=== PATIENT | male | born 1960 | race Caucasian/White ===

== ENCOUNTER 2021-03-06 10:15 | Inpatient (IN) | payer OTHER, SELFPAY ==
[~2021-03-06] VITALS: Ht 188 cm; Wt 119.0 kg
[2021-03-06 10:19] VITALS: BP_SYST 145
[2021-03-06 11:23] LABS: BASOPHILS % (AUTO) 0.4 % (0.0-2.0); EOSINOPHILS # (AUTO) 0.2 K/uL (0.0-0.4); EOSINOPHILS % (AUTO) 6.8 % (0.0-4.0); HEMOGLOBIN 7.2 g/dL (14.0-18.0); LYMPHOCYTES # (AUTO) 0.6 K/uL (1.0-5.5); LYMPHOCYTES % (AUTO) 18.5 % (20.5-51.5); MEAN CORPUSCULAR HEMOGLOBIN 29 pg (27-31); MEAN CORPUSCULAR HGB CONC 33 % (32-36); MEAN CORPUSCULAR VOLUME 87 fL (79.0-98.0); MONOCYTES # (AUTO) 0.3 K/uL (0.0-1.0); MONOCYTES % (AUTO) 10.3 % (1.7-9.3); NEUTROPHILS # (AUTO) 2.1 K/uL (1.8-7.7); PLATELET COUNT (AUTO) 270 K/uL (130-430); RED BLOOD CELL COUNT(AUTO) 2.51 MIL/uL (4.2-6.2); RED CELL DISTRIBUTION WIDTH 16.3 % (9.0-15.0); WHITE BLOOD COUNT (AUTO) 3.2 K/uL (4.8-10.8)
[2021-03-06 11:26] LABS: HEMATOCRIT 21.9 % (36-54)
[2021-03-06 11:38] LABS: CALCIUM 8.3 mg/dL (8.4-11.0); CREATININE 0.92 mg/dL (0.55-1.30)
[2021-03-06 11:42] LABS: POTASSIUM 4.1 mmol/L (3.5-5.1)
[2021-03-06 11:44] LABS: ALBUMIN 3.1 g/dL (3.4-4.8); TOTAL BILIRUBIN 0.3 mg/dL (0.0-1.0)
[2021-03-06] MEDS: D5/0.45 NS 1,000 ML IV SCH (14:24)
[2021-03-06] MEDS ORDERED: subutex PO (18:10)
[2021-03-06] MEDS ORDERED: ONDANSETRON HCL 4 MG/2 ML VIAL IVP PRN (18:15)
[2021-03-06] MEDS ORDERED: LORazepam 2 MG/ML VIAL IVP PRN (18:15)
[2021-03-06] MEDS: PANTOPRAZOLE SODIUM 40 MG/VIAL (PROTONIX) IV SCH (20:59)
[2021-03-06] MEDS ORDERED: ACETAMINOPHEN 325 MG TABLET PO PRN (23:45)
[2021-03-07] VITALS: BP_SYST 140
[2021-03-07] MEDS: D5/0.45 NS 1,000 ML IV SCH ×3 (00:19→20:39)
[2021-03-07 06:45] LABS: BASOPHILS % (AUTO) 0.7 % (0.0-2.0); EOSINOPHILS # (AUTO) 0.2 K/uL (0.0-0.4); HEMATOCRIT 25.6 % (36-54); HEMOGLOBIN 8.5 g/dL (14.0-18.0); LYMPHOCYTES # (AUTO) 0.8 K/uL (1.0-5.5); LYMPHOCYTES % (AUTO) 22.3 % (20.5-51.5); MEAN CORPUSCULAR HEMOGLOBIN 29 pg (27-31); MEAN CORPUSCULAR HGB CONC 33 % (32-36); MEAN CORPUSCULAR VOLUME 86 fL (79.0-98.0); MONOCYTES # (AUTO) 0.4 K/uL (0.0-1.0); MONOCYTES % (AUTO) 10.2 % (1.7-9.3); NEUTROPHILS # (AUTO) 2.3 K/uL (1.8-7.7); NEUTROPHILS % (AUTO) 60.8 % (40.0-70.0); PLATELET COUNT (AUTO) 201 K/uL (130-430); RED BLOOD CELL COUNT(AUTO) 2.97 MIL/uL (4.2-6.2); RED CELL DISTRIBUTION WIDTH 15.7 % (9.0-15.0); WHITE BLOOD COUNT (AUTO) 3.7 K/uL (4.8-10.8)
[2021-03-07 07:03] LABS: CALCIUM 8.4 mg/dL (8.4-11.0); CREATININE 0.66 mg/dL (0.55-1.30); POTASSIUM 3.9 mmol/L (3.5-5.1)
[2021-03-07 08:04] VITALS: BP_SYST 116
[2021-03-07] MEDS: PANTOPRAZOLE SODIUM 40 MG/VIAL (PROTONIX) IV SCH ×2 (08:08→20:47)
[2021-03-07] MEDS ORDERED: PANT40TA45 PO (10:28)
[2021-03-07 12:00] VITALS: BP_SYST 118
[2021-03-07 16:00] VITALS: BP_SYST 110
[2021-03-07 20:00] VITALS: BP_SYST 120
[2021-03-08] VITALS: BP_SYST 139
[2021-03-08] MEDS: D5/0.45 NS 1,000 ML IV SCH (06:07)
[2021-03-08 07:53] LABS: BASOPHILS % (AUTO) 0.7 % (0.0-2.0); EOSINOPHILS # (AUTO) 0.2 K/uL (0.0-0.4); EOSINOPHILS % (AUTO) 5.7 % (0.0-4.0); HEMATOCRIT 26.2 % (36-54); HEMOGLOBIN 8.4 g/dL (14.0-18.0); LYMPHOCYTES # (AUTO) 0.6 K/uL (1.0-5.5); LYMPHOCYTES % (AUTO) 19.7 % (20.5-51.5); MEAN CORPUSCULAR HEMOGLOBIN 28 pg (27-31); MEAN CORPUSCULAR HGB CONC 32 % (32-36); MEAN CORPUSCULAR VOLUME 87 fL (79.0-98.0); MONOCYTES # (AUTO) 0.4 K/uL (0.0-1.0); MONOCYTES % (AUTO) 11.4 % (1.7-9.3); NEUTROPHILS % (AUTO) 62.5 % (40.0-70.0); PLATELET COUNT (AUTO) 201 K/uL (130-430); RED BLOOD CELL COUNT(AUTO) 3.01 MIL/uL (4.2-6.2); RED CELL DISTRIBUTION WIDTH 16.2 % (9.0-15.0); RETICULOCYTE COUNT 2.3 % (0.5-1.5); WHITE BLOOD COUNT (AUTO) 3.2 K/uL (4.8-10.8)
[2021-03-08 08:12] LABS: CALCIUM 8.3 mg/dL (8.4-11.0); CREATININE 0.68 mg/dL (0.55-1.30); POTASSIUM 4.3 mmol/L (3.5-5.1)
[2021-03-08 08:13] VITALS: BP_SYST 149
[2021-03-08] MEDS: PANTOPRAZOLE SODIUM 40 MG/VIAL (PROTONIX) IV SCH (08:42)
[2021-03-08 10:43] LABS: TOTAL IRON BIND. CAPACITY 417 ug/dL (250-450)
[2021-03-08 12:06] VITALS: BP_SYST 130
[2021-03-08 14:56] VITALS: BP_SYST 130
[2021-03-09 08:06] LABS: FOLATE (FOLIC ACID) 5.4 ng/mL (>3.0)
== END 2021-03-08 15:30 | disposition home or self-care (01) | DRG 812 ==
LOC: SED 10:15 → SMU 13:24
PROVIDERS: ADMIT Preventive Medicine Preventive Medicine/Occupational Environmental Medicine; ATTEND Preventive Medicine Preventive Medicine/Occupational Environmental Medicine
PROC: 30233N1 Transfusion of Nonautologous Red Blood Cells into Peripheral Vein, Percutaneous Approach (ICD-10-PCS; principal; 2021-03-06)
DX: D64.9 Anemia, unspecified (principal); D72.819 Decreased white blood cell count, unspecified; E83.51 Hypocalcemia; Z20.822 Contact with and (suspected) exposure to COVID-19; E88.09 Other disorders of plasma-protein metabolism, not elsewhere classified; R73.9 Hyperglycemia, unspecified; Z88.5 Allergy status to narcotic agent
CPT/HCPCS: 36415; 36430; 71045; 80048; 80053; 82607; 82728; 82746; 83010; 83540; 83550; 83605; 84484; 85025; 85044; 86886; 86900; 86901; 86920; 93005; 93970; 96361; 96374; 99285; C9113; J2060; J2405; P9021